=== PATIENT | male | born 1985 | race Caucasian/White ===

== ENCOUNTER 2018-05-27 20:34 | Emergency (ER) | payer SELFPAY ==
[2018-05-27 20:34] VITALS: BP 131/81; PULSE 92; RESP 18; TEMP 37.7; O2SAT 99; BMI 30.9
--- NOTE | 2018-05-27 21:39 | ED.RN ---
THIS RN ASKED PT IF HE WAS SUICIDAL. PT REPORTS, I AM NOT FEELING SUICIDAL, I HAVE JUST BEEN MORE DEPRESSED THE PAST 5 WEEKS AND HAVING RELATIONSHIP ISSUES. I TOLD A FRIEND A COUPLE DAYS AGO THAT I WAS FEELING DEPRESSED. I THREATENED TO HURT MYSELF. BUT I DID NOT, AND I DO NOT WANT TO HURT MYSELF NOW. I KNOW IT WAS WRONG. I WAS JUST TRYING TO GET MY SIGNIFICANT OTHERS ATTENTION. PT EDUCATED THAT SI IS A VERY SERIOUS THING AND THAT HE SHOULD BE SEEN BY MEDICAL STAFF IMMEDIATELY IF HE IS FEELING SUICIDAL. PT REPORTS HE DOES NOT CURRENTLY SEE A COUNSELOR, AND STOPPED HIS DEPRESSION MEDICATION 5 YEARS AGO.
--- NOTE | 2018-05-27 21:59 | ED.RN ---
NO OLD EKGS IN MUSE
[2018-05-27] MEDS: 0.9% Normal Saline 1,000 ML 1000 ML IV (22:00)
[2018-05-27 22:18] VITALS: BP 130/84; BP 132/78; BP 134/77; PULSE 81; PULSE 88; PULSE 98
[2018-05-27 22:38] VITALS: BP 134/92; PULSE 81; RESP 12; O2SAT 100
[2018-05-27 22:52] LABS: Absolute Lymphocyte Count 1.79 X10^3/ul (0.83-4.51); Absolute Neutrophil Count 9.3 X10^3/uL (2.0-7.7); Basophil# 0.03 X10^3/uL; Basophil% 0.2 % (0-1); Eosinophil# 0.08 X10^3/uL; Eosinophils% 0.7 % (0-5); Hematocrit 41.7 % (40-54); Lymphocyte # 1.79 X10^3/ul (4.0); Lymphocyte % 14.8 % (19-41); Mean Corp Hgb Conc 33.6 g/gl (32-36); Mean Corpuscular Hgb 29.2 pg (27.0-32.0); Mean Corpuscular Volume 87.1 fL (80-94); Mean Platelet Vol. 10.2 fl (6.2-12.0); Monocyte# 0.83 X10^3/uL; Monocyte% 6.9 % (0-10); Neutrophil # 9.32 X10^3/uL (2.7-7.7); Neutrophil % 77.1 % (47-70); POSITIVE COUNT NO; POSITIVE DIFFERENTIAL NO; POSITIVE MORPHOLOGY NO; Platelet Count 259 K/mm3 (150-450); RBC Distribution Width CV 12.6 % (11.6-14.6); RBC Distribution Width SD 40.2 fl (35.1-43.9); Red Blood Count 4.79 M/mm3 (4.6-6.2); White Blood Count 12.1 K/mm3 (4.4-11.0)
[2018-05-27 23:11] LABS: Anion Gap 10 (5-15); BUN 12 mg/dL (7-18); BUN/Creat Ratio 12.7 RATIO (10-20); Calcium,Total 8.7 mg/dL (8.5-10.1); Chloride 106 mmol/L (98-107); Creatinine, Serum 0.94 mg/dL (0.70-1.30); EST Glomerular Filtration Rate 98 mL/min (>60); Est Glom Filt Rate - Afr Amer 118 mL/min (>60); Estimated Creatinine Clearance 89.96 ml/min; Glucose 126 mg/dL (74-106); Potassium 3.1 mmol/L (3.5-5.1); Sodium Level 142 mmol/L (136-145)
--- NOTE | 2018-05-27 23:16 | ED.VISSUMM ---
- ER Visit Summary Date of Service: 05/27/18 Chief Complaint: Syncope History of Present Illness: The patient is a 32 M with no primary care physician. He reports that he was at work today he advanced in it for approximately 10 minutes and had a syncopal episode. He reports that coworkers helped him to the floor. He states he been standing for approximately 10 minutes. He had no preceding symptoms. He is not lightheaded. No chest pain or palpitations. No abdominal pain. No nausea. He denies any injuries from this. Review of systems: General: No fever, chills, cold sweats. Cardiovascular: No chest pain, palpitations. Respiratory: No cough, shortness of breath, dyspnea on exertion. Gastrointestinal: No abdominal pain, nausea, vomiting, diarrhea, melena, or hematochezia. Genitourinary: No dysuria, frequency, hematuria. Skin: No rash. Neuro: No headache, numbness, weakness. Physical Examination: Vitals: Stable. Afebrile. General: Well-nourished and well-developed. Head: Normocephalic atraumatic. Neck: Supple, no lymphadenopathy. No JVD. Nontender. Cardiovascular: Regular rate and rhythm. No murmurs. Respiratory: No respiratory distress. Clear to auscultation bilaterally. Abdominal: Soft, nontender, nondistended, normal bowel sounds. No guarding, rebound, or peritoneal signs. Back: Nontender. Extremities: Nontender, no edema. Skin: Normal color, no rash. Neurologic: Alert and oriented ?3. Cranial nerves II through XII are intact. Normal strength and sensation. Mental status exam: Patient appears their stated age. Good posture and grooming. Good eye contact. Normal rate, volume, and latency of speech. No suicidal or homicidal ideation. No auditory or visual hallucinations. Flow of thought is logical. Insight and judgment is fair. Test Results: EKG is sinus at [address] changes. There is no old EKG for comparison. Troponin is negative. Chem-7 marked potassium 3.1 glucose 126. CBC is more for white count 12.1 with 77 segmented neutrophils and 15 lymphocytes. Emergency Department Course and Treatment: Patient had negative orthostatic vital signs. He reports diffuse K-Dur p.o. at this time I do not have an expiration for the patient's episode of syncope. He looks well and would like to go home. Treatment Plan: Patient will be discharged instructed top Dr. Wilkinson soon as possible. Return to the emergency department for any worsening symptoms. Disposition: To home in improved and stable condition. Impression: 1. Syncope, uncertain cause. 2. Hypokalemia. This note was generated with [employer] dictation software. It may contain incorrect words, spelling, and punctuation that were not noted in review of the chart prior to signing ED Disposition - Plan for ED Patient: Disposition: Home or Assisted Living Chief Complaint: Syncope Instructions: ED Fainting Unkn Cause Referrals: Myrna Wilkinson MD [Primary Care Provider] - 3-5 Days
[2018-05-27 23:28] VITALS: BP 120/70; PULSE 85; RESP 18; O2SAT 99
--- NOTE | 2018-05-27 23:29 | ED.RN ---
pt given written and verbal discharge instructions. pt verbalizes understanding of instructions. pt educated to return to ed if he begins having suicidal thoughts. pt to follow up with dr. williamson. iv d/c and covered with 2x2 gauze dressing and paper tape. pt ambulates out of dept after dressing self.
== END 2018-05-27 23:30 | disposition home or self-care (01) ==
LOC: ED 22:28
PROVIDERS: Emergency Provider Emergency Medicine; Family Provider Internal Medicine; PCP Internal Medicine
DX: R55 Syncope and collapse (principal); E87.6 Hypokalemia
CPT/HCPCS: 80048; 84484; 85025; 93005; 96360; 99285; J7030

== ENCOUNTER 2018-06-29 22:37 | Emergency (ER) | payer SELFPAY ==
[2018-06-29 22:39] VITALS: BP 162/94; PULSE 78; RESP 16; TEMP 36.1; BMI 31.8
--- NOTE | 2018-06-29 23:40 | ED.DCSUM_ITS ---
- ER Visit Summary Date of Service: 06/29/18 Chief Complaint: Penile discharge History of Present Illness: The patient is a 32 M green penile discharge this morning. No dysuria. No pain in testicles. No ulcers. No nausea or vomiting. No fever. Sexually active with single partner. History of gonorrhea 15 years ago. Physical Examination: General: Alert and oriented ?3, no acute distress HEENT: Normocephalic, atraumatic. Moist mucosa membranes Neck: supple, nontender. Cardiovascular: Regular rate and rhythm, no murmurs Respiratory: Normal breath sounds, symmetric, no distress Abdomen: Soft, nontender, nondistended\ : Normal testicular lie, no swelling. No epididymal tenderness. No discharge. No ulcers. Extremities: Nontender, no edema, pulses intact ?4 Neuro: no focal neurological deficits. Test Results: GC and chlamydia pending. Emergency Department Course and Treatment: Patient went evaluation for GC and chlamydia. Urine was ordered, patient wanted to wait for results initially, however results are still pending. He did not want empiric treatment currently. He wanted results prior. He will be discharged, results positive he will be contacted for treatment. Treatment Plan: [] Disposition: Discharge Impression: STD evaluation This note was generated with [employer] dictation software. It may contain incorrect words, spelling, and punctuation that were not noted in review of the chart prior to signing ED Disposition - Plan for ED Patient: Disposition: Home or Assisted Living Chief Complaint: General Illness Diagnosis: STD evaluation Instructions: Older Adults and STDs Referrals: Care Physician,No Primary [Primary Care Provider] - Espinoza Shankar MD [NON-STAFF] - 5-7 Days
[2018-06-30 01:47] LABS: Chlamydia Trachomatis by PCR Negative (Negative); Neisserai gonorrhoeae by PCR Negative (Negative); Probe Check PASS; Sample Adequacy Control PASS; Specimen Processing Control PASS
== END 2018-06-30 00:37 | disposition home or self-care (01) ==
PROVIDERS: Emergency Provider Emergency Medicine
DX: Z11.3 Encounter for screening for infections with a predominantly sexual mode of transmission (principal)
CPT/HCPCS: 87491; 87591; 99282

== ENCOUNTER 2018-07-11 02:28 | Emergency (ER) | payer SELFPAY ==
[2018-07-11 02:29] VITALS: BP 135/97
[2018-07-11 02:30] VITALS: BP 135/97; PULSE 76; RESP 18; TEMP 36.6; O2SAT 99; BMI 32.1
[2018-07-11 03:23] LABS: Bacteria 0 SEEN /hpf (None Seen); Mucous, Urine 0 SEEN /hpf (<or=2+); Red Blood Cells-Urine 0 SEEN /hpf (0-5); Squamous Epithelial Cells - UA 0 SEEN /hpf (0-5)
[2018-07-11] MEDS: Ondansetron ODT 4 MG Tablet 8 MG PO (03:26)
[2018-07-11] MEDS: metroNIDAZOLE 500 MG Tablet 2000 MG PO (03:26)
[2018-07-11] MEDS: Azithromycin 250 MG Tablet 1000 MG PO (03:26)
[2018-07-11] MEDS: Ceftriaxone 500 MG Vial 250 MG IM (03:28)
--- NOTE | 2018-07-11 03:30 | ED.DCSUM_ITS ---
- ER Visit Summary Date of Service: 07/11/18 Chief Complaint: Penile discharge History of Present Illness: The patient is a 32 M presenting for evaluation secondary to penile discharge. Patient reports over the course the last 2 weeks he has been having issues with penile discharge. He reports that he was seen about a week ago gave a urine GC and chlamydia test which was negative, but he has not received any treatment. Patient states that he has continued foul penile drainage that is nonpainful. He denies any fevers night sweats or unintended weight loss. Denies any presence of dysuria associated with this. Denies any abdominal pain. He states that he is sexually active with a single partner over the course of the last 4 years Physical Examination: Vital signs within normal limits. exam shows nontender bilateral inguinal lymphadenopathy and purulent urethral drainage. Testicles and scrotum are nontender. No evidence of lesions. Test Results: Urinalysis GC and chlamydia tests were sent and are pending Emergency Department Course and Treatment: Patient presented with penile discharge. He did consent to empiric treatment. He was given Rocephin azithromycin Flagyl and Zofran and was discharged. Disposition: Discharge Impression: 1. Urethritis This note was generated with [employer] dictation software. It may contain incorrect words, spelling, and punctuation that were not noted in review of the chart prior to signing ED Disposition - Plan for ED Patient: Disposition: Home or Assisted Living Chief Complaint: Male Pain/Injury Diagnosis: Urethritis Instructions: ED Urethritis Infec Vs Inflam Male Referrals: Deena Rachel [NON-STAFF] -
[2018-07-11 03:31] LABS: Color, Urine Yellow (Yellow); Glucose, Dipstick Normal (Normal); Ketone-Dipstick 5 mg/dl (Negative); Leukocyte Esterase-Dipstick 25 /ul (Negative); Nitrite-Dipstick Negative (Negative); Occult Blood-Urine Negative /ul (Negative); Protein-Dipstick Negative (Negative); Urine Bilirubin Dipstick Negative (Negative); Urine Clarity Clear (Clear); Urine Urobilinogen Normal (Normal)
[2018-07-11 03:39] LABS: White Blood Cells 10-25 SEEN /hpf (0-5)
[2018-07-11 03:50] VITALS: BP 130/60; PULSE 72; RESP 16; O2SAT 99
[2018-07-11 05:11] LABS: Chlamydia Trachomatis by PCR Negative (Negative); Neisserai gonorrhoeae by PCR Negative (Negative); Probe Check PASS; Sample Adequacy Control PASS; Specimen Processing Control PASS
== END 2018-07-11 03:51 | disposition home or self-care (01) ==
PROVIDERS: Emergency Provider Emergency Medicine
DX: N34.2 Other urethritis (principal)
CPT/HCPCS: 81001; 87086; 87491; 87591; 96372; 99283; A4216

== ENCOUNTER 2020-11-25 23:33 | Emergency (ER) | payer MEDICAID, SELFPAY ==
[2020-11-25 23:34] VITALS: BP 138/83; PULSE 95; RESP 16; TEMP 35.6; O2SAT 98; BMI 29.2
[2020-11-25] MEDS: Naproxen 500 MG Tablet PO (23:44)
--- NOTE | 2020-11-25 23:48 | RAD_ITS ---
STUDY: X-RAY - LEFT SHOULDER REASON FOR EXAM: Male, 35 years old. injury TECHNIQUE: 4 view(s) of the shoulder. COMPARISON: None. FINDINGS: Normal glenohumeral articulation. There is minimal widening of the AC joint suggesting a Type I acromioclavicular joint separation. Normal acromion. Normal humeral head and visualized proximal humerus. The soft tissue structures are unremarkable. Normal visualized pulmonary apex. RAD/Shoulder min 2 Views IMPRESSION: There is minimal widening of the AC joint suggesting a Type I acromioclavicular joint separation. Electronically Signed: Placido Jalloh MD at 1:20 EST Tel , Service support ,
--- NOTE | 2020-11-26 00:02 | ED.VIS.GEN ---
History of Present Illness Chief Complaint: Upper Extremity Injury Informant: Patient Onset: Today Context: Sudden Onset Timing: Continuous Current Severity: Mild Maximum Severity: Moderate Narrative: Patient is a 35-year-old male who is right-hand dominant the presents with left shoulder pain. Patient states he was vacuuming today. He states when he moved the vacuum, he felt something click and pop in his left shoulder. Since then, has had some mild pain. He states that the extreme range of motion. He did not fall. He denies other injury. He said no numbness or tingling in the hand. Prior similar symptoms: No Recent Illness/Hospitalization: No Past Medical History - Allergies and Home Meds Allergies/Adverse Reactions: Allergies amoxicillin [Amoxicillin] Allergy (Verified 11/25/20 23:38) Rash diphenhydramine HCl [From Benadryl] Adverse Reaction (Verified 11/25/20 23:38) Other PASS OUT Primary Care Physician: Care Physician,No Primary [Primary Care Provider] - Prior records reviewed: Yes Past Medical History: None Surgical History: noncontributory Smoking Status: Never smoker Review of Systems General: Denies: Chills, Fever, Sweats Eyes: Denies: Visual changes - bilaterally, Diplopia ENT: Denies: Rhinorrhea, Sore throat Cardiovascular: Denies: Chest pain, Palpitations Respiratory: Denies: Dyspnea, Cough, Dyspnea on exertion Gastrointestinal: Denies: Abdominal pain, Nausea, Vomiting, Diarrhea, Melena, Hematochezia Genitourinary: Denies: Dysuria, Hematuria, Frequency Musculoskeletal: Denies: Back pain, Extremity Pain Skin: Denies: Rash, Wounds Neurological: Denies: Headache, Weakness, Numbness Physical Exam Vital Signs/Narrative: Vital Signs Temp Pulse Resp BP Pulse Ox 11/25/20 23:34 96.1 F L 95 16 138/83 H 98 Inital Vital Signs reviewed: Yes General: Well nourished, Well developed, No Acute Distress Head: Normocephalic, Atraumatic Eyes: Perrl, EOMI ENT: Moist mucous membranes, No rhinorrhea Neck: Supple, Nontender Cardiovascular: Regular rate, Regular rhythm, No murmurs Respiratory: No distress, CTA bilaterally, Chest nontender Abdomen: Soft, Nontender, Nondistended, Normal bowel sounds Back: Nontender, Normal Inspection Extremities: No edema, Tenderness - Mild tenderness of the shoulder. Pain at extreme abduction and internal rotation. No laxity. Skin: Normal color, No rash Neurological: Alert, Oriented x3, Cranial nerves II-XII grossly intact, Normal Strength, Normal Sensation Psychological: Normal affect, Normal Mood Diagnostic/Tx/Re-eval - Medical Decision Making Plain films were obtained of the left shoulder. These were reviewed by myself. There is no evidence of fracture dislocation. The joint itself is intact. There is no subluxation or laxity. Clinically, I do feel the patient has a rotator cuff strain. I will treat him with anti-inflammatories. He was counseled on gentle range of motion. He will be discharged home. Impression 1. Left rotator cuff strain ED Disposition - Plan for ED Patient: Instructions: ED Shoulder Sprain Prescriptions: Naproxen [Naprosyn] 500 mg PO BID PRN #20 tab Prescription Printed Referrals: Care Physician,No Primary [Primary Care Provider] -
[2020-11-26 00:17] VITALS: BP 122/78; PULSE 80; RESP 15; O2SAT 99
== END 2020-11-26 00:18 | disposition home or self-care (01) ==
LOC: ED 11-26 00:17
PROVIDERS: Emergency Provider Emergency Medicine; PCP Internal Medicine
DX: S46.012A Strain of muscle(s) and tendon(s) of the rotator cuff of left shoulder, initial encounter (principal); X58.XXXA Exposure to other specified factors, initial encounter; Y93.E3 Activity, vacuuming; Y92.9 Unspecified place or not applicable; Y99.8 Other external cause status
CPT/HCPCS: 73030; 99283

== ENCOUNTER 2020-12-18 05:51 | Emergency (ER) | payer MEDICAID, SELFPAY ==
[2020-12-18 05:51] VITALS: BP 120/83; PULSE 90; RESP 16; TEMP 36.7; O2SAT 100; BMI 25.2
[2020-12-18] MEDS: 0.9% Normal Saline 1,000 ML 1000 ML IV (06:23)
[2020-12-18 06:26] LABS: Absolute Neutrophil Count 4.3 X10^3/uL (2.0-7.7); Basophil# 0.07 X10^3/uL; Basophil% 0.9 % (0-1); Eosinophil# 0.33 X10^3/uL; Eosinophils% 4.4 % (0-5); Hematocrit 42.1 % (40-54); Hemoglobin 13.9 g/dL (13.0-16.5); Mean Corpuscular Hgb 29.3 pg (27.0-32.0); Mean Corpuscular Volume 88.8 fL (80-94); Mean Platelet Vol. 9.7 fl (6.2-12.0); Monocyte# 0.67 X10^3/uL; Monocyte% 8.8 % (0-10); NRBC Flagged by Analyzer 0 % (0-5); Neutrophil # 4.27 X10^3/uL (2.7-7.7); Neutrophil % 56.4 % (47-70); Platelet Count 271 K/mm3 (150-450); RBC Distribution Width CV 12.5 % (11.6-14.6); RBC Distribution Width SD 40.5 fl (35.1-43.9); Red Blood Count 4.74 M/mm3 (4.6-6.2); White Blood Count 7.6 K/mm3 (4.4-11.0)
--- NOTE | 2020-12-18 06:39 | ED.DCSUM_ITS ---
- ER Visit Summary Date of Service: 12/18/20 Chief Complaint: Abdominal pain History of Present Illness: The patient is a [address] Wilkinson. He reports that he has upper abdominal pain that began 4 days ago. It was intermittent initially, but has been constant for the past 2 days. Describes the pain as cramping. Is 10 of 10 at worst and 7-10 currently. Is worsened by sitting up and relieved by nothing. He denies any nausea or vomiting. He reports he had 4 episodes of diarrhea today. No blood in his stools or black tarry stools. No dysuria or frequency. Patient denies sick contacts. Has not been camping out of the country. No possible bad food exposure. Does not drink well water. No recent antibiotic use. No history of spicy or fatty food intolerance. Physical Examination: Vitals: Stable. Afebrile. General: Well-nourished and well-developed. Head: Normocephalic atraumatic. Neck: Supple, no lymphadenopathy. No JVD. Nontender. Cardiovascular: Regular rate and rhythm. No murmurs. Respiratory: No respiratory distress. Clear to auscultation bilaterally. Abdominal: Soft, mild epigastric and right upper quadrant tenderness to palpation, nondistended, normal bowel sounds. No guarding, rebound, or peritoneal signs. Back: Nontender. Extremities: Nontender, no edema. Skin: Normal color, no rash. Neurologic: Alert and oriented ?3. Cranial nerves II through XII are intact. Normal strength and sensation. Psych: Normal affect. Test Results: CBC is normal. Chem-7 shows potassium 3.4. LFTs are normal. Lipase is normal. Emergency Department Course and Treatment: Patient had an IV placed. Is given a liter normal saline. He is given morphine and Zofran IV. He is resting more comfortably. Treatment Plan: Patient will be discharged with Prilosec, Zofran, and Bentyl. Instructed to follow-up his primary care physician in 1 to 2 days if not improving. Return to the emergency department for any worsening symptoms. Disposition: To home in improved and stable condition. Impression: 1. Abdominal pain. 2. Diarrhea. This note was generated with [employer] software. It may contain incorrect words, spelling, and punctuation that were not noted in review of the chart prior to signing ED Disposition - Plan for ED Patient: Instructions: ED PEPTIC ULCER vs GASTRITIS Prescriptions: Dicyclomine HCl [Bentyl] 20 mg PO TIDAC #20 capsule Prescription Printed Omeprazole [Prilosec] 20 mg PO DAILY #30 capsule Prescription Printed Ondansetron [Zofran Odt] 4 mg PO Q8H PRN PRN #10 tablet PRN Reason: Nausea Prescription Printed Referrals: Myrna Wilkinson MD [Primary Care Provider] - 3-5 Days if not improving
[2020-12-18 06:42] LABS: ALB/GLOB Ratio 1.2 RATIO (0.9-2.4); AST(SGOT) 17 U/L (15-37); Alanine Aminotransfer ALT/SGPT 49 U/L (16-61); Albumin, Serum 3.8 g/dL (3.2-5.0); Alkaline Phosphatase 84 U/L (45-117); Anion Gap 6 (5-15); BUN 14 mg/dL (7-18); BUN/Creat Ratio 17.4 RATIO (10-20); Calcium,Total 8.6 mg/dL (8.5-10.1); Chloride 106 mmol/L (98-107); EST Glomerular Filtration Rate 115 mL/min (>60); Est Glom Filt Rate - Afr Amer 139 mL/min (>60); Estimated Creatinine Clearance 127.65 ml/min; Globulin 3.1 g/dL (2.2-4.2); Glucose 90 mg/dL (74-106); Lipase 79 U/L (73-393); Potassium 3.4 mmol/L (3.5-5.1); Protein, Total 6.9 g/dL (6.4-8.2); Sodium Level 139 mmol/L (136-145)
== END 2020-12-18 06:59 | disposition home or self-care (01) ==
LOC: ED 06:28
PROVIDERS: Emergency Provider Emergency Medicine; PCP Internal Medicine
DX: R10.10 Upper abdominal pain, unspecified (principal); R19.7 Diarrhea, unspecified
CPT/HCPCS: 80053; 83690; 85025; 96374; 99283; J7030; A4216; J2405